=== PATIENT | male | born 1950 | race Caucasian/White ===

== ENCOUNTER 2019-05-23 00:22 | Emergency (ER) | payer MEDICARE, OTHER ==
[~2019-05-23] VITALS: Ht 177.8 cm; Wt 129.3 kg
--- OUTSIDE RECORDS SUMMARY | 2019-05-23 00:26 | XMS REPORT ---
Author Author [facility] Address Unknown Phone Unavailable Care Team Providers Care Technical Photographer Name Role Phone Unavailable Unavailable Payers Payer Name Policy Type Policy Number Effective Date Expiration Date Problems This patient has no known problems. Allergies, Adverse Reactions, Alerts Allergy Name Allergy Type Status Severity Reaction(s) Onset Date Inactive Date Treating Clinician Comments No Known Allergies DA Active U 2019-01-18 00:00:00 Medications This patient has no known medications. Results Test Description Test Time Test Comments Text Results Atomic Results Result Comments - DUP VEIN UNI/LTD 2019-01-18 04:26:00 Name: MJ VEGA [facility] : 1950 Age/S: 68 / M [address] [place] [address] Unit #: [id number] Loc: [place] [address] Phys: Brian Gan NP Acct: [id number] Dis Date: Status: [facility] ER PHONE #: [phone] Exam Date: 01/18/2019 0406 FAX #: [phone] Reason: R lower leg swelling, redness EXAMS: CPT CODE: [id number] DUP VEIN UNI/LTD [id number] PROCEDURE: UNILATERAL LOWER EXTREMITY VENOUS ULTRASOUND DATED 01/18/2019. INDICATION: Right lower leg swelling and redness. COMPARISON: None. TECHNIQUE: Sonographic evaluation of the right lower extremity veins was performed using high resolution B-mode, pulse and color Doppler imaging. FINDINGS: The common femoral, femoral, popliteal and visualized calf veins appear patent with normal compressibility, augmentation and color flow. Normal venous waveforms. The saphenofemoral junction is unremarkable. Thrombosis of a superficial varicose vein in the subcutaneous fat of the right calf is noted. IMPRESSION: 1. No sonographic evidence of acute lower extremity deep venous thrombosis. 2. Superficial venous thrombosis of a varicose vein in the subcutaneous fat of the right calf. SL: 131 at 0426 Reported and signed by: Adolfo Magana M.D. CC: Brian Gan NP Technologist: Chantel Joseph RDMS(Isidro)(OB) Trnscb Date/Time: 01/18/2019 (042) [email or web address] Orig Print D/T: S: 01/18/2019 (0429) Probe: PAGE 1 Signed Report
== END 2019-05-23 01:00 | disposition home or self-care (01) ==
LOC: ER 00:22
DX: M79.661 Pain in right lower leg (principal); I80.01 Phlebitis and thrombophlebitis of superficial vessels of right lower extremity
CPT/HCPCS: 93971; 99283